=== PATIENT | female | born 1950 | race Caucasian/White ===

== ENCOUNTER 2017-04-25 23:32 | Emergency (ER) | payer OTHER ==
[2017-04-26 04:01] VITALS: BP 140/84
== END 2017-04-26 04:01 | disposition home or self-care (01) ==
LOC: ED 23:32
DX: S00.83XA Contusion of other part of head, initial encounter (principal); S80.01XA Contusion of right knee, initial encounter; R03.0 Elevated blood-pressure reading, without diagnosis of hypertension; W18.30XA Fall on same level, unspecified, initial encounter; Y93.01 Activity, walking, marching and hiking; Y99.8 Other external cause status; Y92.89 Other specified places as the place of occurrence of the external cause
CPT/HCPCS: Q0092